=== PATIENT | female | born 2000 | race Caucasian/White ===

== ENCOUNTER 2018-06-23 11:52 | Emergency (ER) | payer SELFPAY ==
[2018-06-23] MEDS ORDERED: NS 0.9% 1000 ML* 1,000 ML IV ONE ×2 (12:05→13:43)
[2018-06-23] MEDS ORDERED: Ondansetron ODT TAB* 4 MG PO ONE (12:05)
--- NOTE | 2018-06-23 12:35 | ED ---
Syncope/Near Syncope - HPI Summary HPI Summary: Pt is a 18 y/o female who presents to the ED s/p syncope. She states she woke up at 4:00 and had N/V/D, then fainted. Pt is unsure if she hit her head, but does not believe she did. She also c/o dizziness and lightheadedness. Earlier in the week she had some dysuria but it is now resolved. Pt states she went on a hike yesterday and feels she did not drink enough water. Pt also states she does not think she is . - History Of Current Complaint Chief Complaint: EDDizziness Hx Obtained From: Patient Onset/Duration: Sudden Onset, Lasting Hours - 4:00, Resolved Timing: Intermittent Episode Lasting Context: Loss Of Consciousness Activity At Onset: Other - Vomiting and diarrhea Associated Signs And Symptoms: Diarrhea, Dizzy, Lightheadedness, Vomiting - Allergies/Home Medications Allergies/Adverse Reactions: Allergies Allergy/AdvReac Type Severity Reaction Status Date / Time No Known Allergies Allergy Verified 06/23/18 12:00 PMH/Surg Hx/FS Hx/Imm Hx Endocrine/Hematology History: Denies: Hx Diabetes Cardiovascular History: Denies: Hx Hypertension - Immunization History Date of Tetanus Vaccine: < 10 years Immunizations Up to Date: Yes Infectious Disease History: No Infectious Disease History: Denies: Traveled Outside the [place] in Last 30 Days - Family History Known Family History: Negative: Hypertension - Social History Alcohol Use: Rare Hx Substance Use: No Substance Use Type: Reports: None Hx Tobacco Use: Yes Smoking Status (MU): Current Some Day Smoker Review of Systems Negative: Fever Negative: Blurred Vision, Diplopia Negative: Sore Throat, Ear Ache Negative: Chest Pain Negative: Shortness Of Breath Positive: Vomiting, Diarrhea, Nausea Positive: dysuria Negative: Rash, Bruising Neurological: Other - Dizziness, lightheadedness Positive: Syncope Negative: Anxious, Depressed All Other Systems Reviewed And Are Negative: No Physical Exam - Summary Physical Exam Summary: Appearance: Alert, conversive, nontoxic appearing Skin: Warm, dry, no mottling, no rashes, no contusions HEENT: EOMI, PERRL, moist mucous membranes Neck: No masses on the neck, supple Respiratory: Clear to auscultation, breath sounds present, no rales, no rhonchi , no wheezes Cardiovascular: RRR, pulses are symmetrical in both lower and upper extremities Abdomen: Soft, non-tender Bowel Sounds: Present Musculoskeletal: No CVA tenderness, no obvious deformity, moving all extremities in a grossly normal manner Neurological: A&Ox3, CN II-XII Intact, moving all extremities symmetrically Psychiatric: Normal affect and mood Triage Information Reviewed: Yes Vital Signs On Initial Exam: Initial Vitals Temp Pulse Resp BP Pulse Ox 99.0 F 104 18 104/48 100 06/23/18 11:55 06/23/18 11:55 06/23/18 11:55 06/23/18 11:55 06/23/18 11:55 Vital Signs Reviewed: Yes Diagnostics - Vital Signs Vital Signs Temp Pulse Resp BP Pulse Ox 06/23/18 11:55 99.0 F 104 18 104/48 100 - Laboratory Result Diagrams: 06/23/18 12:30 06/23/18 12:30 Lab Statement: Any lab studies that have been ordered have been reviewed, and results considered in the medical decision making process. Re-Evaluation - Re-Evaluation First Eval Re-Evaluation Time: 13:45 Change: Improved Comment: Pt is feeling better. She was still mildly tachycardic when she sat upright so was given another liter. Course/Dx Course Of Treatment: Pt is a 18 y/o female who presents to the ED s/p syncope. She states she woke up at 4:00 and had N/V/D, then fainted. Pt is unsure if she hit her head, but does not believe she did. She also c/o dizziness and lightheadedness. Earlier in the week she had some dysuria but it is now resolved. Pt states she went on a hike yesterday and feels she did not drink enough water. A physical exam was normal. Pt was feeling better upon re- evaluation. She was still mildly tachycardic when she sat upright so was given another liter. Final dx are dehydration and nausea, vomiting, diarrhea. Pt is discharged home with a prescription for Zofran. - Diagnoses Provider Diagnoses: Nausea vomiting and diarrhea, Dehydration Discharge - Sign-Out/Discharge Documenting (check all that apply): Patient Departure - Discharge - Discharge Plan Condition: Stable Disposition: HOME Prescriptions: Ondansetron [Zofran Odt] 4 mg PO Q8H #20 tab MDD 3 Patient Education Materials: Dehydration (ED), Acute Nausea and Vomiting (ED), Acute Diarrhea (ED) Referrals: [facility] [place] [facility] [Outside] - 3 Days Additional Instructions: Please drink plenty of fluids. return if worse or any new symptoms. Take zofran as instructed for nausea/vomiting. eat a bland diet for the next 2-3 days. If you plan on having a prolonged stay in the [facility], I would encourage you getting a primary care physician. - Attestation Statements Document Initiated by Scribe: Yes Documenting Scribe: Jen Swain Provider For Whom Scribe is Documenting (Include Credential): Mita Diane MD Scribe Attestation: IJen, scribed for Mita Diane MD on 06/23/18 at 1400.
[2018-06-23 12:36] LABS: ABS Basophils 0 10^3/ul (0-0.2); ABS Eosinophils 0 10^3/ul (0-0.6); ABS Lymphocytes 0.5 10^3/ul (1.0-4.8); ABS Monocytes 0.6 10^3/ul (0-0.8); ABS Neutrophils 10.4 10^3/ul (1.5-7.7); ABS Nucleated RBC 0 10^3/ul; Eosinophil % 0 % (0-6); Hematocrit 39 % (35-47); Hemoglobin 13.4 g/dl (12.0-16.0); Lymphocyte % 4.3 % (25-47); Mean Corpuscular HGB Conc 34 g/dl (31-36); Mean Corpuscular Hemoglobin 31 pg (27-31); Mean Corpuscular Volume 90 fL (80-97); Nucleated Red Blood Cells % 0; Platelet Count 145 10^3/ul (150-450); Red Blood Count 4.35 10^6/ul (4.00-5.40); Red Cell Distribution Width 14 % (10.5-15); White Blood Count 11.5 10^3/ul (3.5-10.8)
[2018-06-23 12:54] LABS: EGFR Non-African American 87.6 (>60)
[2018-06-23 14:49] LABS: Urine Appearance Clear; Urine Blood 1+ (Negative); Urine Color Straw; Urine Ketones Negative (Negative); Urine Protein Negative (Negative); Urine Red Blood Cell Trace(0-2/hpf) (Absent); Urine Specific Gravity 1.004 (1.010-1.030); Urine Urobilinogen Negative (Negative); Urine White Blood Cell Trace(0-5/hpf) (Absent)
[2018-06-23] MEDS ORDERED: Acetaminophen TAB* 325 MG ONE (14:56)
[2018-06-23] MEDS ORDERED: Acetaminophen TAB* 325 MG PO ONE (14:58)
[2018-06-23 15:31] VITALS: BP 106/61
== END 2018-06-23 15:08 | disposition home or self-care (01) ==
LOC: ED 11:52
DX: E86.0 Dehydration (principal); R11.2 Nausea with vomiting, unspecified; R19.7 Diarrhea, unspecified; R00.0 Tachycardia, unspecified; F17.200 Nicotine dependence, unspecified, uncomplicated
CPT/HCPCS: 36415; 80053; 81003; 81015; 84702; 85025; 87086; 96360; 99283; A9270-GY